=== PATIENT | female | born 1955 ===

== ENCOUNTER → 2018-09-29 20:52 | Outpatient (REF) | payer SELFPAY ==
[2018-09-29 22:05] LABS: Cholesterol 286 mg/dL (140-199); HDL Cholesterol 64 mg/dL (40-60); Triglycerides 69 mg/dL (35-150)
[2018-09-30 09:22] LABS: LDL Cholesterol Calculated 208 mg/dL (<100)
[2018-10-05 10:09] LABS: Lipoprofile NMR SEE SEPARATE RESULTS
[2018-10-06 18:18] LABS: Estrogen 51.6 pg/mL
== END ==
LOC: LAB 20:52
PROVIDERS: Visit Provider Naturopath
DX: E78.00 Pure hypercholesterolemia, unspecified (principal)
CPT/HCPCS: 36415; 80061; 82672; 83704